=== PATIENT | female | born 1940 | race Caucasian/White ===

== ENCOUNTER 2021-04-11 06:06 | Day surgery (SDC) | payer MEDICARE, OTHER ==
[~2021-04-11 06:06] MED LIST: Midazolam 1 MG/ML 2 ML SDV ONE; fentaNYL 100 MCG/2 ML SDV ONE
[2021-04-11] MEDS ORDERED: fentaNYL 100 MCG/2 ML SDV IV ONE ×3 (06:07→07:01)
[2021-04-11] MEDS ORDERED: Midazolam 1 MG/ML 2 ML SDV IV ONE ×4 (06:07→07:10)
[2021-04-11] MEDS ORDERED: Dextrose 5%-0.45% NaCl 1,000 ML IV SCH (07:30)
--- NOTE | 2021-04-11 08:04 | OR ---
DATE: 04/11/2021 Total colonoscopy and multiple pinch biopsies. INSTRUMENT USED: PCF-H190DL Olympus video colonoscope. PREMEDICATIONS: Fentanyl 100 mcg intravenous, Versed 2 mg intravenous. Nasal O2 cannula. The procedure was done under pulse oximetry, BP recording, and patient monitor. INDICATION: The patient with previous Clostridioides difficile infection, treated. Has persistent diarrhea unexplained and not responsive to medical measures. Colonoscopic examination is done for detection of any polypoid lesions and removal, biopsies to be obtained for microscopic colitis, endoscopic hemostasis therapy if needed. Initial rectal exam was unremarkable. Rigid anoscopy showed some prolapsing distal rectal mucosa. The colonoscope was passed with ease. Numerous scattered diverticula were noted in the distal left colon along with deformity. The scope was passed with ease up to the ileocecal area. Photographs were taken of the normal-appearing cecum, identified by appendiceal orifice and double-bulged ileocecal folds. No bleeding was noted from any of the visualized areas at the commencement of the examination. Bowel preparation was found to be adequate [place] scale 2 in right and left colon, 3 in transverse colon. No stricture. No vascular ectasia. No large isolated ulcerations seen. No evidence of diffuse inflammatory bowel disease in the form of friability, contact bleeding, or ulcerations. No polyp or tumor mass identified. Probing the proximal sides of folds and flexures using adequate distention and clearing up the stool material, withdrawal of the scope was made. Multiple pinch biopsies were taken from the normal-appearing mucosa of the mid transverse colon, mid descending colon, and rectosigmoid, and sent for any histopathologic evidence of microscopic colitis. No bleeding was noted from any of the visualized areas at the completion of examination. IMPRESSION: Diverticulosis. The patient tolerated the procedure well. [facility] /[id number]
[2021-04-11] MEDS ORDERED: Sodium Chloride 0.9% 10 ML Syringe FLUSH SCH (09:00)
== END 2021-04-11 09:22 | disposition home or self-care (01) ==
LOC: DL.ENDO 06:06
PROVIDERS: ATTEND Internal Medicine Gastroenterology
DX: K52.831 Collagenous colitis (principal); K57.30 Diverticulosis of large intestine without perforation or abscess without bleeding; E66.09 Other obesity due to excess calories; N81.4 Uterovaginal prolapse, unspecified; E11.9 Type 2 diabetes mellitus without complications; M10.9 Gout, unspecified; I10 Essential (primary) hypertension; E78.5 Hyperlipidemia, unspecified; R32 Unspecified urinary incontinence; N95.2 Postmenopausal atrophic vaginitis; Z90.49 Acquired absence of other specified parts of digestive tract; Z98.890 Other specified postprocedural states; Z88.8 Allergy status to other drugs, medicaments and biological substances; Z68.32 Body mass index [BMI] 32.0-32.9, adult
CPT/HCPCS: 45380; J2250; J3010; J7042; 88305

== ENCOUNTER 2023-05-17 08:48 | Emergency (ER) | payer MEDICARE, OTHER ==
[2023-05-17] MEDS: Diltiazem 25 MG/5 ML SDV IVPUSH ONE (09:17)
[2023-05-17 09:19] LABS: BASOPHILS PERCENT AUTO 0.1 % (0.0-1.0); HEMATOCRIT 40.2 % (37.0-47.0); HEMOGLOBIN 13.5 g/dL (12.0-16.0); LYMPHOCYTES PERCENT AUTO 21.8 % (20.5-50.1); MEAN CORPUSCULAR HEMOGLOBIN 30.8 pg (27.0-34.0); MEAN CORPUSCULAR HGB CONC 33.6 g/dL (33.0-35.0); MEAN CORPUSCULAR VOLUME 91.6 fL (80-100); MONOCYTES PERCENT AUTO 11.4 % (2-8); NEUTROPHILS PERCENT AUTO 66.7 % (42.2-75.2); PLATELET COUNT,PLT 197 10^3/uL (150-450); RED BLOOD CELL COUNT 4.39 10^6/uL (4.2-5.4); WHITE BLOOD CELL COUNT,WBC 7.3 10^3/uL (5.0-10.0)
[2023-05-17] MEDS: Diltiazem 125 MG in Sodium Chloride 0.9% 100 ML IV SCH (09:30)
[2023-05-17] MEDS: Sodium Chloride 0.9% 10 ML Syringe FLUSH PRN (09:30)
[2023-05-17 09:38] LABS: PROTHROMBIN TIME 10.5 SEC (9.0-12.0); PTT,PARTIAL THROMBOPLSTIN TIME 24.9 SEC (22.0-34.0)
[2023-05-17 09:44] LABS: LACTIC ACID 0.9 mmol/L (0.4-2.0)
[2023-05-17 09:48] LABS: APPEARANCE,URINE CLEAR (CLEAR); BILIRUBIN,URINE NEGATIVE (NEGATIVE); COLOR,URINE YELLOW (YELLOW); GLUCOSE,URINE NEGATIVE (NEGATIVE); KETONES,URINE NEGATIVE (NEGATIVE); LEUKOCYTE ESTERASE,URINE NEGATIVE (NEGATIVE); NITRITE,URINE NEGATIVE (NEGATIVE); OCCULT BLOOD,URINE TRACE-LYSED (NEGATIVE); PROTEIN,URINE 100 (NEGATIVE); UROBILINOGEN,URINE 0.2 mg/dL (0.2-1.0)
[2023-05-17 09:50] LABS: ALANINE AMINOTRANSFERASE,ALT 45 U/L (14-59); ALBUMIN 3.6 g/dL (3.4-5.0); ALKALINE PHOSPHATASE 74 U/L (46-116); ANION GAP 9.5 mEq/L (7-13); ASPARTATE AMNIOTRANSFERASE,AST 39 U/L (15-37); BILIRUBIN TOTAL 1.1 mg/dL (0.2-1.0); BLOOD UREA NITROGEN,BUN 8 mg/dL (7-18); BUN/CREATININE RATIO 7.8 (No establ ref range); CALCIUM 9.1 mg/dL (8.5-10.1); CARBON DIOXIDE,CO2 32 mmol/L (21-32); CHLORIDE,CL 100 mmol/L (98-107); CREATININE 1.03 mg/dL (0.55-1.02); GLUCOSE RANDOM 146 mg/dL (70-99); MAGNESIUM 1.3 mg/dL (1.8-2.4); POTASSIUM,K 2.5 mmol/L (3.5-5.1); PROTEIN TOTAL,TP 7.1 g/dL (6.4-8.2); SODIUM,NA 139 mmol/L (136-145); TSH ULTRASENSITIVE 3.62 uIU/mL (0.36-3.74)
[2023-05-17 09:51] LABS: ESTIMATED GFR 54 mL/min (>=60)
[2023-05-17 10:08] LABS: BACTERIA,URINE FEW /HPF (0-FEW/HPF); EPITHELIAL CELLS,URINE FEW /HPF (NOT SEEN); RBC,URINE 0-5 /HPF (0-5); WBC,URINE NOT SEEN /HPF (0-5/HPF)
[2023-05-17 10:09] LABS: AMORPHOUS SEDIMENT,URINE NOT SEEN /HPF (NOT SEEN); MUCUS,URINE NOT SEEN /LPF (NOT SEEN)
[2023-05-17 10:17] LABS: B-TYPE NATRIURETIC PEPTIDE,BNP 565 pg/ml (0-100)
[2023-05-17] MEDS: Potassium Chloride 20 MEQ in Premix Bag 1 BAG IV ONE (10:22)
[2023-05-17] MEDS: Lidocaine 1% 5 ML VIAL INJECT ONE (10:27)
[2023-05-17] MEDS: Magnesium Sulfate/Water 2 GM in Premix Bag 1 BAG IV ONE ×2 (10:27→10:51)
[2023-05-17] MEDS: Potassium Chloride 10 MEQ Tab.ER PO ONE (10:46)
== END 2023-05-17 14:25 ==
LOC: DL.ED 08:48
DX: S00.03XA Contusion of scalp, initial encounter (principal); R55 Syncope and collapse; I48.91 Unspecified atrial fibrillation; R00.1 Bradycardia, unspecified; E83.42 Hypomagnesemia; E87.6 Hypokalemia; A04.72 Enterocolitis due to Clostridium difficile, not specified as recurrent; I10 Essential (primary) hypertension; E66.9 Obesity, unspecified; E11.9 Type 2 diabetes mellitus without complications; Z88.8 Allergy status to other drugs, medicaments and biological substances; Z68.33 Body mass index [BMI] 33.0-33.9, adult; Z79.82 Long term (current) use of aspirin; Z79.899 Other long term (current) drug therapy; Z90.49 Acquired absence of other specified parts of digestive tract; Z90.710 Acquired absence of both cervix and uterus; W22.8XXA Striking against or struck by other objects, initial encounter
CPT/HCPCS: 36415; 70450; 71045; 72125; 80053; 81001; 82947; 83605; 83735; 83880; 84145; 84443; 84484; 85025; 85610; 85730; 93005; 93010; 96365; 96366; 96367; 96368; 99285; A9270; J3475; J3480; J3490